=== PATIENT | male | born 1970 | race Caucasian/White ===

== ENCOUNTER 2021-09-30 13:39 | Emergency (ER) | payer OTHER ==
[~2021-09-30] VITALS: Ht 190.5 cm; Wt 95.5 kg
[2021-09-30 14:18] VITALS: BP 126/76
== END 2021-09-30 15:57 | disposition home or self-care (01) ==
LOC: ER 13:40
DX: S71.111A Laceration without foreign body, right thigh, initial encounter (principal); W29.3XXA Contact with powered garden and outdoor hand tools and machinery, initial encounter; Y93.89 Activity, other specified; Y92.89 Other specified places as the place of occurrence of the external cause; Y99.8 Other external cause status
CPT/HCPCS: 12002; 73551; 99283